=== PATIENT | female | born 1985 | race Caucasian/White ===

== ENCOUNTER 2019-06-11 17:31 | Emergency (ER) | payer OTHER ==
[2019-06-11 17:45] VITALS: BP 129/83; PULSE 81; TEMP 98.1; BMI 25.4
[2019-06-11] MEDS ORDERED: SODIUM CHLORIDE 1,000 ML IV STA (18:41)
--- NOTE | 2019-06-11 18:41 | PDOC ---
Rapid Medical Evaluation Chief Complaint: Pain Time Seen by Provider: 06/11/19 18:39 Medical Evaluation: Allergies Allergy/AdvReac Type Severity Reaction Status Date / Time No Known Allergies Allergy Verified 06/11/19 17:45 Vital Signs Temp Pulse Resp BP Pulse Ox 98.1 F 81 16 129/83 97 06/11/19 17:43 06/11/19 17:43 06/11/19 17:43 06/11/19 17:43 06/11/19 17:43 06/11/19 18:39 Patient is a 33-year-old female with suprapubic abdominal pain and pelvic pain that radiates to her low back. She states the pain is been ongoing for 1 month. She denies any dysuria or hematuria. She states she took a home test 4 days ago which was negative. Brief exam: Moderate suprapubic tenderness to palpation. No reproducible low back pain to palpation. Abdomen soft. Nontoxic-appearing Orders: CBC, CMP, UA, urine Pt sent to the ED for further evaluation. Discharge Disposition - Diagnosis Suprapubic abdominal pain - Referrals Referrals: Bobby Mock MD [Primary Care Provider] - - Patient Instructions - Post Discharge Activity
[2019-06-11] MEDS ORDERED: ACETAMINOPHEN 1000 MG/100 ML VIAL (NON FORMULARY) IVPB ONE (19:15)
--- NOTE | 2019-06-11 19:16 | PDOC ---
*Physical Exam - Vital Signs Last Vital Signs Temp Pulse Resp BP Pulse Ox 98.1 F 81 16 129/83 97 06/11/19 17:43 06/11/19 17:43 06/11/19 17:43 06/11/19 17:43 06/11/19 17:43 Discharge - Discharge Information Clinical Impression/Diagnosis: Suprapubic abdominal pain - Follow up/Referral Referrals: Bobby Mock MD [Primary Care Provider] - - Patient Discharge Instructions - Post Discharge Activity
--- NOTE | 2019-06-11 19:22 | PDOC ---
History of Present Illness - General Chief Complaint: Pain Stated Complaint: PELVIC/BACK PAIN Time Seen by Provider: 06/11/19 18:39 History Source: Patient - History of Present Illness Initial Comments: 06/11/19 19:27 33 year old female c/o b/l pelvic pain/ lower back pain x 3 weeks. worse today after doing stretching. denies vaginal bleeding, discharge, exposure to STIs, no new partner. negative urine at home. 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 Past History - Past Medical History Allergies/Adverse Reactions: Allergies Allergy/AdvReac Type Severity Reaction Status Date / Time No Known Allergies Allergy Verified 06/11/19 17:45 Home Medications: Ambulatory Orders Acetaminophen/Caffeine/Butalb [Fioricet -] 1 tab PO Q6H PRN 06/03/17 Norethindrone-E.estradiol-Iron [Junel Fe 1 mg-20 Mcg Tablet] 1 each PO DAILY Sumatriptan [Imitrex] 20 mg PO DAILY PRN 06/03/17 Cyclobenzaprine HCl [Flexeril -] 10 mg PO TID PRN #14 tablet 06/11/19 Ibuprofen 600 mg PO QID PRN #20 tablet 06/11/19 COPD: No - Surgical History Cholecystectomy: Yes - Psycho Social/Smoking Cessation Hx Smoking History: Never smoked Hx Alcohol Use: No Drug/Substance Use Hx: No Review of Systems - Review of Systems Able to Perform ROS?: Yes Is the patient limited Vietnamese proficient: No Constitutional: No: Symptoms Reported, See HPI, Chills, Diaphoresis, Fever, Loss of Appetite, Malaise, Night Sweats, Weakness, Weight Stable, Unintentional Wgt. Loss, Unexplained wgt Loss, Other HEENTM: No: Symptoms Reported, See HPI, Eye Pain, Blurred Vision, Tearing, Recent change in vision, Double Vision, Cataracts, Ear Pain, Ocular Prothesis, Ear Discharge, Nose Pain, Nose Congestion, Tinnitus, Nose Bleeding, Hearing Loss , Throat Pain, Throat Swelling, Mouth Pain, Dental Problems, Difficulty Swallowing, Mouth Swelling, Other ABD/GI: Yes: Other (suprapubic pain/ pelvic pain) *Physical Exam - Vital Signs Last Vital Signs Temp Pulse Resp BP Pulse Ox 98.1 F 81 16 129/83 97 06/11/19 17:43 06/11/19 17:43 06/11/19 17:43 06/11/19 17:43 06/11/19 17:43 - Physical Exam General Appearance: Yes: Moderate Distress Respiratory/Chest: positive: Lungs Clear, Normal Breath Sounds Female Pelvic Exam: positive: normal external exam, cervical os closed, adnexal tenderness (left adnexal tenderness) Gastrointestinal/Abdominal: positive: Normal Bowel Sounds, Soft, Other ( suprapubic and left pelvic tenderness). negative: Tender Extremity: positive: Normal Capillary Refill, Normal Inspection Integumentary: positive: Normal Color, Dry, Warm Neurologic: positive: Fully Oriented, Alert ED Treatment Course - LABORATORY CBC & Chemistry Diagram: 06/11/19 20:36 06/11/19 20:36 Medical Decision Making - Medical Decision Making 06/11/19 19:36 A: back pain; pelvic pain P: cbc bmp ua ucg/ ucx IVF tylenol Discharge - Discharge Information Problems reviewed: Yes Clinical Impression/Diagnosis: Pelvic pain Back pain Qualifiers: Back pain location: low back pain Chronicity: acute Back pain laterality: bilateral Sciatica presence: without sciatica Qualified Code(s): M54.5 - Low back pain Disposition: HOME - Additional Discharge Information Prescriptions: Cyclobenzaprine HCl [Flexeril -] 10 mg PO TID PRN #14 tablet PRN Reason: Back Pain Ibuprofen 600 mg PO QID PRN #20 tablet PRN Reason: Back Pain - Follow up/Referral Referrals: Bobby Mock MD [Primary Care Provider] - - Patient Discharge Instructions Patient Printed Discharge Instructions: Low Back Pain Additional Instructions: Do light stretches Apply ice to the area for the first 24 hours. Then alternate with ice and heat after. Take ibuprofen every 6 hours as needed for pain. Take Flexeril as prescribed for muscle spasm. Flexeril can make you sleepy, do not drive or operate heavy machinery after taking the medication. Follow-up with an orthopedic doctor if symptoms persist. A referral was given to you today. Return to the emergency room for any worsening symptoms. - Post Discharge Activity Work/Back to School Note: Back to Work, Back to School
[2019-06-11] MEDS ORDERED: ACETAMINOPHEN INJECTION 100 ML IVPB ONE (20:05)
[2019-06-11 20:26] LABS: EPI CELLS 1.2 /HPF (0-5/HPF); HYALINE CASTS 3 /lpf (0-8); PH,URINE 5.5 (5.0-8.0); URINE APPEARANCE CLEAR; URINE BACTERIA 102.9 /hpf (NEGATIVE); URINE BILIRUBIN NEGATIVE (NEGATIVE); URINE COLOR YELLOW; URINE GLUCOSE (UA) NEGATIVE (NEGATIVE); URINE KETONE NEGATIVE (NEGATIVE); URINE LEUK ESTERASE NEGATIVE (NEGATIVE); URINE NITRITE NEGATIVE (NEGATIVE); URINE PROTEIN NEGATIVE (NEGATIVE); URINE RBC 4 /hpf (0-4); URINE UROBILINOGEN 0.2 mg/dL (0.2-1.0); URINE WBC 2 /hpf (0-5)
[2019-06-11 20:46] LABS: BASO % 1.5 % (0-2.0); HEMOGLOBIN 14.1 GM/dL (10.7-15.3); LYMPH % 43.9 % (8-40); MCH 30.7 pg (25.7-33.7); MCHC 34.3 g/dl (32.0-36.0); MEAN CELL VOLUME 89.4 fl (80-96); MEAN PLT VOLUME 9.4 fl (7.5-11.1); MONO % 7.6 % (3.8-10.2); PLATELET COUNT 293 K/MM3 (134-434); RBC 4.58 M/mm3 (3.60-5.2); RDW 12.8 % (11.6-15.6); WHITE BLOOD COUNT 10.5 K/mm3 (4.0-10.0)
[2019-06-11 21:10] LABS: BLOOD UREA NITROGEN 10.7 mg/dL (7-18); CALCIUM 8.9 mg/dL (8.5-10.1); CREATININE 0.6 mg/dL (0.55-1.3); POTASSIUM 4.3 mmol/L (3.5-5.1)
[2019-06-11] MEDS ORDERED: KETOROLAC TROMETHAMINE 30 MG/1 ML VIAL IVPUSH ONE (21:27)
[2019-06-11] MEDS ORDERED: KETOROLAC TROMETHAMINE 30 MG/1 ML VIAL ONE (22:17)
[2019-06-11] MEDS ORDERED: CYCLOBENZAPRINE HCL 10 MG TABLET (FP) ONE (22:17)
[2019-06-11] MEDS ORDERED: CYCLOBENZAPRINE HCL 5 MG TABLET PO ONE (23:00)
[2019-06-12] MEDS ORDERED: CYCLOBENZAPRINE HCL 5 MG TABLET PO ONE ×2 (21:45)
== END 2019-06-11 23:00 | disposition home or self-care (01) ==
LOC: JER 17:31
PROC: 3E0337Z Introduction of Electrolytic and Water Balance Substance into Peripheral Vein, Percutaneous Approach (ICD-10-PCS; principal; 2019-06-11)
PROC: 3E033NZ Introduction of Analgesics, Hypnotics, Sedatives into Peripheral Vein, Percutaneous Approach (ICD-10-PCS; 2019-06-11)
PROC: 3E0333Z Introduction of Anti-inflammatory into Peripheral Vein, Percutaneous Approach (ICD-10-PCS; 2019-06-11)
DX: R10.2 Pelvic and perineal pain (principal); M54.5 Low back pain
CPT/HCPCS: 36415; 76830-TC; 80048; 81003; 84703; 85025; 87086; 99285-25; J0131; J7030